=== PATIENT | male | born 1960 | race Caucasian/White ===

== ENCOUNTER 2019-08-20 12:28 | Emergency (ER) | payer MEDICAID ==
[~2019-08-20] VITALS: Ht 180.3 cm; Wt 66.8 kg
[~2019-08-20 12:28] MED LIST: LISI-170 PO; METO25TA35 PO
--- NOTE | 2019-08-20 13:05 | NUR ---
Assumed care of patient. C/O left ear pain since yesterday. Denies ear drainage, tinnitis, vertigo, and URI symptoms. NAD. Will continue to monitor.
--- NOTE | 2019-08-20 13:05 | NUR ---
Hx of HTN. Ran out of lisinopril.
[2019-08-20 13:31] VITALS: BP 169/126
[2019-08-20] MEDS ORDERED: ACETAMINOPHEN 500 MG TABLET PO ONE (14:00)
[2019-08-20] MEDS ORDERED: ACETAMINOPHEN 500 MG TABLET ONE (14:07)
--- NOTE | 2019-08-20 14:17 | NUR ---
Patient/Caregiver given discharge instructions and they have confirmed that they understand the instructions. Patient ambulatory with steady gait.
== END 2019-08-20 14:20 | disposition home or self-care (01) ==
LOC: ED 13:31
DX: H92.02 Otalgia, left ear (principal); I10 Essential (primary) hypertension; J44.9 Chronic obstructive pulmonary disease, unspecified; F17.200 Nicotine dependence, unspecified, uncomplicated
CPT/HCPCS: 99283

== ENCOUNTER 2020-06-26 11:18 | Inpatient (IN) | payer MEDICAID ==
[~2020-06-26] VITALS: Ht 180.3 cm; Wt 71.8 kg
[2020-06-26] VITALS (7 sets, daily range): BP systolic 87–143; BP diastolic 54–90
--- NOTE | 2020-06-26 11:32 | NUR ---
PT TO ROOM 22. CHART GIVEN DIRECTLY TO DR. ENAMORADO.
[2020-06-26] MEDS ORDERED: DEXAMETHASONE 4 MG/ML, 1ML ONE (11:39)
[2020-06-26] MEDS ORDERED: EPINEPHRINE 1 MG/ML, 1ML ONE ×2 (11:39→12:58)
[2020-06-26] MEDS ORDERED: DIPHENHYDRAMINE 50 MG/ML, 1ML ONE (11:39)
[2020-06-26] MEDS ORDERED: FAMOTIDINE 20 MG/2 ML ONE (11:40)
--- NOTE | 2020-06-26 11:46 | NUR ---
Ecg obtained, placed on database support medicated benadryl, decadron, antacid then IM epi after ecg read by MD as patient with hx of [place] in 2005
[2020-06-26] MEDS ORDERED: FAMOTIDINE 20 MG/2 ML IVPush ONE (12:00)
[2020-06-26] MEDS ORDERED: EPINEPHRINE 1 MG/ML, 1ML IM ONE ×2 (12:00→13:00)
[2020-06-26] MEDS ORDERED: DEXAMETHASONE 4 MG/ML, 1ML IVPush ONE (12:00)
[2020-06-26] MEDS ORDERED: SODIUM CHLORIDE FLUSH 10ML SYR IVF ONE (12:00)
[2020-06-26] MEDS ORDERED: DIPHENHYDRAMINE 50 MG/ML, 1ML IVPush ONE (12:00)
[2020-06-26 12:01] LABS: BASOPHILS % (AUTO) 1 % (0-1); EOSINOPHILS % (AUTO) 4 % (1-7); LYMPHOCYTES % (AUTO) 26 % (22-44); MD NO; MEAN CORPUSCULAR HEMOGLOBIN 31.4 pg (27.5-34.5); MEAN CORPUSCULAR HGB CONC 33.4 g/dL (33.2-36.2); MEAN PLATELET VOLUME 7.8 fL (7.4-10.4); MONOCYTES % (AUTO) 11 % (2-9); NEUTROPHILS % (AUTO) 59 % (42-75); PLATELET COUNT 324 x10^3/uL (130-400); RED BLOOD COUNT 5.57 x10^6/uL (4.38-5.82); RED CELL DISTRIBUTION WIDTH 13.6 % (9.4-14.8)
[2020-06-26 12:06] LABS: ANION GAP 9 mmol/L (5-15); CHLORIDE 107 mmol/L (98-107)
[2020-06-26] MEDS ORDERED: OMEP20TA9 PO (12:08)
[2020-06-26] MEDS ORDERED: CARV3.122 PO (12:08)
[2020-06-26] MEDS ORDERED: FLUT1BLS9 INH (12:08)
[2020-06-26] MEDS ORDERED: ALBU90AE2 INH (12:08)
[2020-06-26] MEDS ORDERED: LISI20TA21 PO (12:08)
--- NOTE | 2020-06-26 12:14 | NUR ---
WITH REASSESSMENT- "I FEEL A LITTLE BETTER." VSS ON READING TUTOR FACIAL SWELLING SLIGHTLY IMPROVED
--- NOTE | 2020-06-26 12:52 | NUR ---
WORSENING SOB/THROAT TIGHTNESS- ERP MADE AWARE
[2020-06-26] MEDS ORDERED: TRANEXAMIC ACID 100 MG/ML, 10ML IVPush ONE (13:00)
--- NOTE | 2020-06-26 13:25 | NUR ---
Patient with significantly worse sob. ERP to bedside. Voice much more hoarse. Patient very scared. Plant to intubate Transferred to Trauma Room 3 and Report to trauma RN: Hema HUITRON
[2020-06-26] MEDS ORDERED: ETOMIDATE 20 MG/10 ML IVPush ONE ×2 (13:30→14:00)
[2020-06-26] MEDS ORDERED: SUCCINYLCHOLINE 20 MG/ML, 10ML IVPush ONE ×2 (13:30→14:00)
[2020-06-26] MEDS ORDERED: PROPOFOL 100 ML IV PRN (13:30)
[2020-06-26] MEDS ORDERED: VECURONIUM 10 MG IVPush ONE (14:00)
[2020-06-26] MEDS ORDERED: ONDANSETRON 2MG/ML, 2ML IV PRN (15:00)
[2020-06-26] MEDS ORDERED: PHARMACY MAY ADJ FOR RENAL FX MC SCH (15:00)
[2020-06-26] MEDS ORDERED: ONDANSETRON 2MG/ML, 2ML IVPush PRN (15:00)
[2020-06-26] MEDS ORDERED: DEXTROSE 4 GM TAB.CHEW PO PRN (15:00)
[2020-06-26] MEDS ORDERED: LIDOCAINE-MPF 1%, 2ML ENDO PRN (15:00)
[2020-06-26] MEDS ORDERED: GLUCAGON 1 MG IM PRN (15:00)
[2020-06-26] MEDS ORDERED: DEXTROSE 50%, 50ML SYRINGE IVPush PRN (15:00)
[2020-06-26] MEDS: LABETALOL 5MG/ML, 20ML IVPush PRN (15:10)
[2020-06-26] MEDS: DIPHENHYDRAMINE 50 MG/ML, 1ML IVPush SCH ×2 (15:10→19:39)
[2020-06-26] MEDS: methylPREDNISolone SOD SUCC 125 MG/2 ML IVPush SCH ×2 (15:19→19:39)
[2020-06-26] MEDS ORDERED: ATROPINE SYRINGE 0.1 MG/ML, 10ML IVPush ONE (15:30)
[2020-06-26 15:42] LABS: AMPHETAMINE SCREEN, URINE Positive (Negative); BARBITURATE SCREEN, URINE Negative (Negative); BENZODIAZEPINE SCREEN, URINE Negative (Negative); CANNABINOID SCREEN, URINE Positive (Negative); COCAINE SCREEN, URINE Negative (Negative); METHADONE SCREEN, URINE Negative (Negative); OPIATE SCREEN, URINE Negative (Negative)
[2020-06-26] MEDS ORDERED: TRANEXAMIC ACID 1,000 MG in SODIUM CHLORIDE 0.9% 100 ML IV ONE (17:00)
[2020-06-26] MEDS: SODIUM CHLORIDE 0.9% 1,000 ML IV SCH (17:38)
[2020-06-26] MEDS ORDERED: ETOMIDATE 20 MG/10 ML ONE (19:19)
[2020-06-26] MEDS ORDERED: MIDAZOLAM 1 MG/ML, 5ML ONE (19:19)
[2020-06-26] MEDS ORDERED: PROPOFOL 10 MG/ML, 100ML IV ONE (19:19)
[2020-06-26] MEDS ORDERED: VECURONIUM 20 MG VIAL ONE (19:19)
[2020-06-26] MEDS ORDERED: SUCCINYLCHOLINE 20 MG/ML, 10ML ONE (19:19)
[2020-06-26] MEDS: SODIUM CHLORIDE FLUSH 10ML SYR IVF SCH (19:39)
[2020-06-26] MEDS: PROPOFOL 100 ML IV PRN ×2 (19:43→23:06)
[2020-06-26] MEDS: MIDAZOLAM HCL 50 MG in SODIUM CHLORIDE 0.9% 40 ML IV PRN ×2 (21:17→23:06)
[2020-06-27] MEDS: SODIUM CHLORIDE 0.9% 1,000 ML IV SCH (01:00)
[2020-06-27] MEDS: DIPHENHYDRAMINE 50 MG/ML, 1ML IVPush SCH ×4 (03:23→21:16)
[2020-06-27] MEDS: methylPREDNISolone SOD SUCC 125 MG/2 ML IVPush SCH ×4 (03:23→21:16)
[2020-06-27] MEDS: MIDAZOLAM HCL 50 MG in SODIUM CHLORIDE 0.9% 40 ML IV PRN ×3 (03:45→18:41)
[2020-06-27 04:30] LABS: ANION GAP 12 mmol/L (5-15); CALCIUM 7.8 mg/dL (8.5-10.1); CHLORIDE 112 mmol/L (98-107); CREATININE 2.42 mg/dL (0.7-1.3)
[2020-06-27 05:31] LABS: BASOPHILS % (AUTO) 0 % (0-1); EOSINOPHILS % (AUTO) 0 % (1-7); LYMPHOCYTES % (AUTO) 11 % (22-44); MEAN CORPUSCULAR HEMOGLOBIN 31.1 pg (27.5-34.5); MONOCYTES % (AUTO) 3 % (2-9); NEUTROPHILS % (AUTO) 86 % (42-75); PLATELET COUNT 224 x10^3/uL (130-400); RED BLOOD COUNT 4.24 x10^6/uL (4.38-5.82); RED CELL DISTRIBUTION WIDTH 13.7 % (9.4-14.8)
[2020-06-27 05:40] LABS: MD NO
[2020-06-27 07:11] LABS: ALBUMIN 3.2 g/dL (3.4-5.0); BILIRUBIN, DIRECT 0.3 mg/dL (0.1-0.2)
[2020-06-27 07:13] LABS: BILIRUBIN,INDIRECT 0.4 mg/dL (0.0-2.0); BILIRUBIN,TOTAL 0.7 mg/dL (0.2-1.0); TOTAL PROTEIN 7.1 g/dL (6.4-8.2)
[2020-06-27] MEDS ORDERED: POTASSIUM CHLORIDE 20 MEQ PACKET PO ONE (08:30)
[2020-06-27] MEDS: FAMOTIDINE 20 MG/2 ML IVPush SCH (09:26)
[2020-06-27] MEDS: SODIUM CHLORIDE FLUSH 10ML SYR IVF SCH ×2 (09:26→21:16)
[2020-06-27] MEDS ORDERED: LACTATED RINGERS 1,000 ML IVBOLUS ONE ×2 (09:30→14:00)
[2020-06-27 13:41] LABS: POTASSIUM,URINE RANDOM 62 mmol/L
[2020-06-27 13:42] LABS: CHLORIDE,URINE RANDOM < 10 mmol/L; SODIUM,URINE RANDOM < 5 mmol/L
[2020-06-27] MEDS: PROPOFOL 100 ML IV PRN (18:41)
[2020-06-28] MEDS: PROPOFOL 100 ML IV PRN ×4 (01:24→20:39)
[2020-06-28] MEDS: methylPREDNISolone SOD SUCC 125 MG/2 ML IVPush SCH ×4 (03:02→20:06)
[2020-06-28] MEDS: DIPHENHYDRAMINE 50 MG/ML, 1ML IVPush SCH ×4 (03:02→20:06)
[2020-06-28 04:46] LABS: BASOPHILS % (AUTO) 0 % (0-1); EOSINOPHILS % (AUTO) 0 % (1-7); LYMPHOCYTES % (AUTO) 4 % (22-44); MEAN CORPUSCULAR HEMOGLOBIN 31.5 pg (27.5-34.5); MEAN CORPUSCULAR HGB CONC 33.5 g/dL (33.2-36.2); MEAN PLATELET VOLUME 8.2 fL (7.4-10.4); MONOCYTES % (AUTO) 4 % (2-9); NEUTROPHILS % (AUTO) 92 % (42-75); PLATELET COUNT 198 x10^3/uL (130-400); RED BLOOD COUNT 3.96 x10^6/uL (4.38-5.82); RED CELL DISTRIBUTION WIDTH 13.7 % (9.4-14.8)
[2020-06-28 04:55] LABS: ANION GAP 8 mmol/L (5-15); CALCIUM 7.7 mg/dL (8.5-10.1); CHLORIDE 111 mmol/L (98-107); CREATININE 2.31 mg/dL (0.7-1.3)
[2020-06-28 05:53] LABS: MD SCAN
[2020-06-28] MEDS: SODIUM CHLORIDE 0.9% 1,000 ML IV SCH ×2 (08:20→20:06)
[2020-06-28] MEDS: FAMOTIDINE 20 MG/2 ML IVPush SCH (09:34)
[2020-06-28] MEDS: HEPARIN 5,000 UNITS/ML, 1ML SQ SCH ×2 (09:35→17:41)
--- NOTE | 2020-06-28 09:35 | NUR ---
TF recs if needed: Promote w/ end goal rate of 70mL/hr (on Propofol); 75mL/hr (OFF propofol). Addendum: 06/28/20 at [address] Amended: Links added.
[2020-06-28] MEDS: SODIUM CHLORIDE FLUSH 10ML SYR IVF SCH ×2 (09:53→20:05)
[2020-06-28] MEDS: MIDAZOLAM HCL 50 MG in SODIUM CHLORIDE 0.9% 40 ML IV PRN (09:53)
[2020-06-29] MEDS: HEPARIN 5,000 UNITS/ML, 1ML SQ SCH ×3 (00:45→15:40)
[2020-06-29] MEDS: MIDAZOLAM HCL 50 MG in SODIUM CHLORIDE 0.9% 40 ML IV PRN ×2 (01:34→23:24)
[2020-06-29] MEDS: methylPREDNISolone SOD SUCC 125 MG/2 ML IVPush SCH ×4 (02:48→21:27)
[2020-06-29] MEDS: DIPHENHYDRAMINE 50 MG/ML, 1ML IVPush SCH ×4 (02:48→21:27)
[2020-06-29 04:36] LABS: BASOPHILS % (AUTO) 0 % (0-1); EOSINOPHILS % (AUTO) 0 % (1-7); LYMPHOCYTES % (AUTO) 3 % (22-44); MEAN CORPUSCULAR HEMOGLOBIN 31.3 pg (27.5-34.5); MEAN PLATELET VOLUME 8.6 fL (7.4-10.4); MONOCYTES % (AUTO) 5 % (2-9); NEUTROPHILS % (AUTO) 91 % (42-75); PLATELET COUNT 184 x10^3/uL (130-400); RED BLOOD COUNT 4.18 x10^6/uL (4.38-5.82); RED CELL DISTRIBUTION WIDTH 13.7 % (9.4-14.8)
[2020-06-29 04:45] LABS: MD SCAN
[2020-06-29 04:46] LABS: ANION GAP 7 mmol/L (5-15); CALCIUM 7.8 mg/dL (8.5-10.1); CHLORIDE 116 mmol/L (98-107); CREATININE 1.73 mg/dL (0.7-1.3); TRIGLYCERIDES 172 mg/dL (50-200)
[2020-06-29] MEDS: SODIUM CHLORIDE FLUSH 10ML SYR IVF SCH ×2 (09:01→21:28)
[2020-06-29] MEDS: FAMOTIDINE 20 MG/2 ML IVPush SCH (09:01)
[2020-06-29] MEDS: hydrALAzine 20 MG/ML, 1ML IVPush PRN ×3 (09:01→21:27)
[2020-06-29] MEDS: SODIUM CHLORIDE 0.9% 1,000 ML IV SCH ×2 (09:02→23:37)
[2020-06-29] MEDS: PROPOFOL 100 ML IV PRN (10:04)
[2020-06-29] MEDS: DEXMEDETOMIDINE 400 MCG in SODIUM CHLORIDE 0.9% 96 ML IV PRN ×3 (11:43→18:37)
[2020-06-29] MEDS: LABETALOL 5MG/ML, 20ML IVPush PRN ×2 (14:53→18:29)
[2020-06-29] MEDS ORDERED: DEXMEDETOMIDINE 1,000 MCG in SODIUM CHLORIDE 0.9% 240 ML IV PRN (23:00)
[2020-06-30] MEDS: HEPARIN 5,000 UNITS/ML, 1ML SQ SCH ×3 (00:48→16:38)
[2020-06-30] MEDS: DIPHENHYDRAMINE 50 MG/ML, 1ML IVPush SCH ×2 (02:58→08:53)
[2020-06-30] MEDS: methylPREDNISolone SOD SUCC 125 MG/2 ML IVPush SCH ×3 (02:59→16:38)
[2020-06-30] MEDS: hydrALAzine 20 MG/ML, 1ML IVPush PRN ×3 (03:01→20:39)
[2020-06-30 04:54] LABS: BASOPHILS % (AUTO) 0 % (0-1); EOSINOPHILS % (AUTO) 0 % (1-7); LYMPHOCYTES % (AUTO) 2 % (22-44); MEAN CORPUSCULAR HEMOGLOBIN 31.3 pg (27.5-34.5); MEAN PLATELET VOLUME 8.5 fL (7.4-10.4); MONOCYTES % (AUTO) 6 % (2-9); NEUTROPHILS % (AUTO) 92 % (42-75); PLATELET COUNT 143 x10^3/uL (130-400); RED BLOOD COUNT 4.33 x10^6/uL (4.38-5.82); RED CELL DISTRIBUTION WIDTH 13.7 % (9.4-14.8)
[2020-06-30 05:05] LABS: MD NO
[2020-06-30 05:10] LABS: ANION GAP 6 mmol/L (5-15); CALCIUM 7.9 mg/dL (8.5-10.1); CHLORIDE 120 mmol/L (98-107); CREATININE 1.46 mg/dL (0.7-1.3)
[2020-06-30] MEDS: MIDAZOLAM HCL 50 MG in SODIUM CHLORIDE 0.9% 40 ML IV PRN (05:55)
[2020-06-30] MEDS ORDERED: DEXMEDETOMIDINE 200 MCG in SODIUM CHLORIDE 0.9% 48 ML IV PRN (08:00)
[2020-06-30] MEDS ORDERED: DEXMEDETOMIDINE 400 MCG in SODIUM CHLORIDE 0.9% 96 ML IV PRN (08:00)
[2020-06-30] MEDS: SODIUM CHLORIDE FLUSH 10ML SYR IVF SCH ×2 (08:53→21:00)
[2020-06-30] MEDS: FAMOTIDINE 20 MG/2 ML IVPush SCH (08:53)
[2020-06-30] MEDS: ZIPRASIDONE 20 MG INJ IM PRN (09:24)
[2020-06-30] MEDS: QUETIAPINE 25MG TABLET NG SCH ×2 (09:25→21:39)
[2020-06-30] MEDS: DEXMEDETOMIDINE 400 MCG in SODIUM CHLORIDE 0.9% 96 ML IV PRN ×2 (11:54→20:48)
[2020-06-30] MEDS: SODIUM CHLORIDE 0.9% 1,000 ML IV SCH (12:32)
[2020-06-30] MEDS: DIPHENHYDRAMINE 50 MG/ML, 1ML IVPush PRN (16:49)
[2020-06-30] MEDS: LORazepam 2 MG/ML, 1ML IVPush PRN (17:42)
[2020-06-30] MEDS: MORPHINE SULFATE 4 MG/ML, 1ML IVPush PRN (19:30)
[2020-06-30] MEDS: LABETALOL 5MG/ML, 20ML IVPush PRN (21:39)
[2020-07-01] MEDS: LORazepam 2 MG/ML, 1ML IVPush PRN (00:28)
[2020-07-01] MEDS: HEPARIN 5,000 UNITS/ML, 1ML SQ SCH ×4 (00:29→23:48)
[2020-07-01] MEDS: methylPREDNISolone SOD SUCC 125 MG/2 ML IVPush SCH ×4 (00:29→23:48)
[2020-07-01] MEDS: SODIUM CHLORIDE 0.9% 1,000 ML IV SCH (03:10)
[2020-07-01] MEDS: DIPHENHYDRAMINE 50 MG/ML, 1ML IVPush PRN (03:30)
[2020-07-01] MEDS: DEXMEDETOMIDINE 400 MCG in SODIUM CHLORIDE 0.9% 96 ML IV PRN ×2 (03:38→09:46)
[2020-07-01] MEDS ORDERED: LACTULOSE 20 GM/30 ML UDC ONE (03:49)
[2020-07-01] MEDS: LACTULOSE 20 GM/30 ML UDC PO PRN (03:51)
[2020-07-01 04:48] LABS: O2 FLOW ROOM AIR L/min
[2020-07-01 04:56] LABS: BASOPHILS % (AUTO) 0 % (0-1); EOSINOPHILS % (AUTO) 0 % (1-7); LYMPHOCYTES % (AUTO) 2 % (22-44); MEAN CORPUSCULAR HEMOGLOBIN 30.8 pg (27.5-34.5); MEAN CORPUSCULAR HGB CONC 32.4 g/dL (33.2-36.2); MEAN PLATELET VOLUME 8.9 fL (7.4-10.4); MONOCYTES % (AUTO) 2 % (2-9); NEUTROPHILS % (AUTO) 97 % (42-75); PLATELET COUNT 110 x10^3/uL (130-400); RED BLOOD COUNT 4.27 x10^6/uL (4.38-5.82); RED CELL DISTRIBUTION WIDTH 14.2 % (9.4-14.8)
[2020-07-01 04:59] LABS: ANION GAP 4 mmol/L (5-15); CHLORIDE 125 mmol/L (98-107); CREATININE 1.31 mg/dL (0.7-1.3); MD NO
[2020-07-01] MEDS: LABETALOL 5MG/ML, 20ML IVPush PRN ×3 (05:35→16:31)
[2020-07-01] MEDS: hydrALAzine 20 MG/ML, 1ML IVPush PRN ×2 (06:10→18:06)
[2020-07-01] MEDS: FENTANYL PF 100 MCG/2ML IVPush PRN ×3 (06:48→16:55)
[2020-07-01] MEDS ORDERED: ROCURONIUM 10 MG/ML,10ML IVPush STA (07:21)
[2020-07-01] MEDS: MORPHINE SULFATE 4 MG/ML, 1ML IVPush PRN (07:22)
[2020-07-01] MEDS ORDERED: PROPOFOL 10 MG/ML, 20ML IVPush ONE (07:30)
[2020-07-01] MEDS ORDERED: PHARMACY MAY ADJ FOR RENAL FX MC SCH (07:30)
[2020-07-01] MEDS ORDERED: ROCURONIUM 10 MG/ML,10ML IVPush ONE (07:30)
[2020-07-01] MEDS ORDERED: PROPOFOL 10 MG/ML, 20ML IV ONE (07:30)
[2020-07-01] MEDS: MIDAZOLAM HCL 50 MG in SODIUM CHLORIDE 0.9% 40 ML IV PRN ×3 (08:01→22:24)
[2020-07-01] MEDS ORDERED: DOCUSATE 100 MG CAPSULE PO SCH (09:00)
[2020-07-01] MEDS: DOCUSATE 50 MG/5 ML, 10ML UDC NG SCH (09:27)
[2020-07-01] MEDS: FAMOTIDINE 20 MG/2 ML IVPush SCH (09:27)
[2020-07-01] MEDS: QUETIAPINE 25MG TABLET NG SCH ×2 (09:27→20:06)
[2020-07-01] MEDS: SODIUM CHLORIDE FLUSH 10ML SYR IVF SCH ×2 (09:27→20:00)
[2020-07-01] MEDS ORDERED: ROCURONIUM 10MG/ML,5ML ONE (11:39)
[2020-07-01] MEDS ORDERED: PROPOFOL 10 MG/ML, 20ML ONE (11:39)
[2020-07-01] MEDS ORDERED: PROPOFOL 10 MG/ML, 100ML IV ONE (11:39)
[2020-07-01 12:15] LABS: ANION GAP 6 mmol/L (5-15); CALCIUM 7.7 mg/dL (8.5-10.1); CHLORIDE 126 mmol/L (98-107)
[2020-07-01] MEDS: ACETAMINOPHEN 325 MG TABLET PO PRN ×2 (13:41→17:46)
[2020-07-01] MEDS: DEXMEDETOMIDINE 1,000 MCG in SODIUM CHLORIDE 0.9% 240 ML IV PRN ×2 (13:53→22:24)
[2020-07-01] MEDS ORDERED: PHARMACOKINETIC MONITORING MC PRN (16:30)
[2020-07-01] MEDS ORDERED: PHARMACOKINETIC CONSULTATION MC ONE (16:30)
[2020-07-01] MEDS ORDERED: VANCOMYCIN PER PHARMACY MC PRN (16:30)
[2020-07-01] MEDS ORDERED: VANCOMYCIN PMX 1GM/200ML 200 ML IV ONE (16:30)
[2020-07-01] MEDS ORDERED: VANCOMYCIN 1,900 MG in SODIUM CHLORIDE 0.9% 250 ML IV ONE (16:45)
[2020-07-01] MEDS: PIPERACILLIN/TAZO/PMX 3.375GM 50 ML IV SCH ×2 (17:46→22:24)
[2020-07-01 18:24] LABS: ANION GAP 6 mmol/L (5-15); CALCIUM 7.8 mg/dL (8.5-10.1); CHLORIDE 123 mmol/L (98-107); CREATININE 1.61 mg/dL (0.7-1.3)
[2020-07-01 19:16] LABS: MICROSCOPIC INDICATED
[2020-07-01] MEDS: BISACODYL 10 MG SUPP PR PRN (20:06)
[2020-07-01] MEDS: SENNA/DOCUSATE TABLET PO SCH (20:06)
[2020-07-01] MEDS: SENNA 176 MG/5 ML ORAL SOL NG SCH (20:07)
[2020-07-02 00:45] LABS: ANION GAP 6 mmol/L (5-15); CALCIUM 7.5 mg/dL (8.5-10.1); CHLORIDE 119 mmol/L (98-107); CREATININE 1.65 mg/dL (0.7-1.3)
[2020-07-02] MEDS: FENTANYL PF 100 MCG/2ML IVPush PRN (02:17)
[2020-07-02] MEDS: PIPERACILLIN/TAZO/PMX 3.375GM 50 ML IV SCH ×4 (03:57→22:51)
[2020-07-02 04:18] LABS: MEAN CORPUSCULAR HGB CONC 32.3 g/dL (33.2-36.2); MEAN PLATELET VOLUME 9.9 fL (7.4-10.4); PLATELET COUNT 58 x10^3/uL (130-400); RED BLOOD COUNT 4.15 x10^6/uL (4.38-5.82); RED CELL DISTRIBUTION WIDTH 14.2 % (9.4-14.8)
[2020-07-02 04:30] LABS: ANION GAP 5 mmol/L (5-15); CALCIUM 7.6 mg/dL (8.5-10.1); CHLORIDE 117 mmol/L (98-107); CREATININE 1.51 mg/dL (0.7-1.3); TRIGLYCERIDES 73 mg/dL (50-200)
[2020-07-02 04:55] LABS: MD YES
[2020-07-02 04:58] LABS: BAND#(MANUAL) 8.73 x10^3/uL; BANDS%(MANUAL) 29 % (0-7); LYMPHS% (MANUAL) 2 % (22-44); MONOS% (MANUAL) 3 % (2-9); SEG#(MANUAL) 19.87 x10^3/uL (1.8-6.8); SEGS% (MANUAL) 66 % (42-75)
[2020-07-02 04:59] LABS: <PLATELET ESTIMATE> DECREASED; <PLT MORPHOLOGY> NORMAL PLT MORPH; ANISOCYTOSIS 1+
[2020-07-02] MEDS: FUROSEMIDE 40 MG/4 ML IV SCH ×2 (10:15→21:45)
[2020-07-02] MEDS: DIAZEPAM 5 MG/ML, 2ML IVPush SCH ×3 (10:16→21:47)
[2020-07-02] MEDS: DOCUSATE 50 MG/5 ML, 10ML UDC NG SCH (10:16)
[2020-07-02] MEDS: FAMOTIDINE 20 MG/2 ML IVPush SCH (10:16)
[2020-07-02] MEDS: methylPREDNISolone SOD SUCC 125 MG/2 ML IVPush SCH ×2 (10:16→16:37)
[2020-07-02] MEDS: LACTULOSE 20 GM/30 ML UDC PO PRN (10:17)
[2020-07-02] MEDS: QUETIAPINE 25MG TABLET NG SCH ×2 (10:17→21:48)
[2020-07-02] MEDS: SODIUM CHLORIDE FLUSH 10ML SYR IVF SCH ×2 (10:17→21:45)
[2020-07-02] MEDS: INSULIN LISPRO 100 UNITS/ML, PEN MEDIUM DOSE SS SQ-INSULIN SCH ×3 (10:30→21:50)
[2020-07-02] MEDS: DEXMEDETOMIDINE 1,000 MCG in SODIUM CHLORIDE 0.9% 240 ML IV PRN ×2 (12:20→22:51)
[2020-07-02] MEDS: ALBUTEROL SULFATE 2.5 MG/3 ML NPPB SCH ×2 (15:00→20:12)
[2020-07-02] MEDS: VANCOMYCIN 1,500 MG in SODIUM CHLORIDE 0.9% 250 ML IV SCH (18:43)
[2020-07-02] MEDS: ZIPRASIDONE 20 MG INJ IM PRN (18:45)
[2020-07-02] MEDS: BUDESONIDE 0.5 MG/2 ML INHA INH SCH (20:12)
[2020-07-02] MEDS: SENNA/DOCUSATE TABLET PO SCH (21:48)
[2020-07-02] MEDS: SENNA 176 MG/5 ML ORAL SOL NG SCH (21:49)
[2020-07-03] MEDS: methylPREDNISolone SOD SUCC 125 MG/2 ML IVPush SCH ×3 (01:17→21:42)
[2020-07-03] MEDS: ALBUTEROL SULFATE 2.5 MG/3 ML NPPB SCH ×4 (02:49→19:33)
[2020-07-03] MEDS: DIAZEPAM 5 MG/ML, 2ML IVPush SCH ×4 (04:17→21:42)
[2020-07-03] MEDS: INSULIN LISPRO 100 UNITS/ML, PEN MEDIUM DOSE SS SQ-INSULIN SCH ×4 (04:17→21:39)
[2020-07-03 04:40] LABS: ANION GAP 5 mmol/L (5-15); CHLORIDE 114 mmol/L (98-107); CREATININE 1.88 mg/dL (0.7-1.3); MEAN CORPUSCULAR HEMOGLOBIN 30.8 pg (27.5-34.5); MEAN CORPUSCULAR HGB CONC 32.5 g/dL (33.2-36.2); MEAN PLATELET VOLUME 10.4 fL (7.4-10.4); RED BLOOD COUNT 4.41 x10^6/uL (4.38-5.82); RED CELL DISTRIBUTION WIDTH 14.3 % (9.4-14.8)
[2020-07-03] MEDS: PIPERACILLIN/TAZO/PMX 3.375GM 50 ML IV SCH ×3 (05:35→18:16)
[2020-07-03 06:03] LABS: MD YES; PLATELET COUNT 45 x10^3/uL (130-400)
[2020-07-03 06:08] LABS: BAND#(MANUAL) 0.22 x10^3/uL; BANDS%(MANUAL) 1 % (0-7); LYMPH#(MANUAL) 0.44 x10^3/uL (1-3.4); LYMPHS% (MANUAL) 2 % (22-44); METAMYELOCYTES# (MANUAL) 0.22 x10^3/uL (0-0); METAMYELOCYTES% (MANUAL) 1 % (0-1); MONOS#(MANUAL) 0.88 x10^3/uL (0.3-2.7); MONOS% (MANUAL) 4 % (2-9); SEG#(MANUAL) 20.33 x10^3/uL (1.8-6.8); SEGS% (MANUAL) 92 % (42-75)
[2020-07-03 06:12] LABS: ANISOCYTOSIS 1+
[2020-07-03 06:13] LABS: <PLATELET ESTIMATE> DECREASED; <PLT MORPHOLOGY> NORMAL PLT MORPH
[2020-07-03] MEDS: BUDESONIDE 0.5 MG/2 ML INHA INH SCH ×2 (07:21→19:33)
[2020-07-03] MEDS: FUROSEMIDE 40 MG/4 ML IV SCH ×2 (08:16→21:41)
[2020-07-03] MEDS: FAMOTIDINE 20 MG/2 ML IVPush SCH (08:16)
[2020-07-03] MEDS: QUETIAPINE 25MG TABLET NG SCH ×2 (08:16→21:44)
[2020-07-03] MEDS: DOCUSATE 50 MG/5 ML, 10ML UDC NG SCH (08:16)
[2020-07-03] MEDS: SODIUM CHLORIDE FLUSH 10ML SYR IVF SCH ×2 (08:16→21:41)
[2020-07-03] MEDS: INSULIN GLARGINE 100 UNITS/ML, PEN SQ-INSULIN SCH ×2 (08:51→21:40)
[2020-07-03] MEDS: MIDAZOLAM HCL 50 MG in SODIUM CHLORIDE 0.9% 40 ML IV PRN (10:04)
[2020-07-03] MEDS: DEXMEDETOMIDINE 1,000 MCG in SODIUM CHLORIDE 0.9% 240 ML IV PRN ×2 (10:05→20:21)
[2020-07-03] MEDS ORDERED: OMNIPAQUE 350 MG/ML, 100ML BOTTLE ONE (11:16)
[2020-07-03] MEDS: hydrALAzine 20 MG/ML, 1ML IVPush PRN (11:48)
[2020-07-03] MEDS ORDERED: FONDAPARINUX 2.5 MG/0.5 ML SQ SCH (13:00)
[2020-07-03] MEDS: VANCOMYCIN 1,500 MG in SODIUM CHLORIDE 0.9% 250 ML IV SCH (18:17)
[2020-07-03] MEDS: AMLODIPINE 5 MG TABLET PO SCH (21:44)
[2020-07-04] MEDS: BISACODYL 10 MG SUPP PR PRN (00:15)
[2020-07-04] MEDS: PIPERACILLIN/TAZO/PMX 3.375GM 50 ML IV SCH ×2 (00:15→05:50)
[2020-07-04] MEDS: ALBUTEROL SULFATE 2.5 MG/3 ML NPPB SCH ×2 (01:00→07:00)
[2020-07-04] MEDS: DIAZEPAM 5 MG/ML, 2ML IVPush SCH ×4 (03:38→21:22)
[2020-07-04] MEDS: INSULIN LISPRO 100 UNITS/ML, PEN MEDIUM DOSE SS SQ-INSULIN SCH ×4 (03:39→21:30)
[2020-07-04 04:59] LABS: ANION GAP 6 mmol/L (5-15); BASOPHILS % (AUTO) 0 % (0-1); CHLORIDE 113 mmol/L (98-107); EOSINOPHILS % (AUTO) 0 % (1-7); LYMPHOCYTES % (AUTO) 3 % (22-44); MEAN CORPUSCULAR HEMOGLOBIN 31.3 pg (27.5-34.5); MEAN CORPUSCULAR HGB CONC 33.6 g/dL (33.2-36.2); MEAN PLATELET VOLUME 10.9 fL (7.4-10.4); MONOCYTES % (AUTO) 6 % (2-9); NEUTROPHILS % (AUTO) 91 % (42-75); RED BLOOD COUNT 4.48 x10^6/uL (4.38-5.82); TRIGLYCERIDES 174 mg/dL (50-200)
[2020-07-04 05:12] LABS: MD NO; PLATELET COUNT 49 x10^3/uL (130-400)
[2020-07-04] MEDS: DEXMEDETOMIDINE 1,000 MCG in SODIUM CHLORIDE 0.9% 240 ML IV PRN (06:15)
[2020-07-04] MEDS: MIDAZOLAM HCL 50 MG in SODIUM CHLORIDE 0.9% 40 ML IV PRN ×4 (06:15→21:29)
[2020-07-04] MEDS: BUDESONIDE 0.5 MG/2 ML INHA INH SCH ×2 (07:00→19:02)
[2020-07-04] MEDS: FAMOTIDINE 20 MG/2 ML IVPush SCH (08:21)
[2020-07-04] MEDS: methylPREDNISolone SOD SUCC 125 MG/2 ML IVPush SCH (08:21)
[2020-07-04] MEDS: FUROSEMIDE 40 MG/4 ML IV SCH ×2 (08:21→21:22)
[2020-07-04] MEDS: AMLODIPINE 5 MG TABLET PO SCH ×2 (08:21→21:23)
[2020-07-04] MEDS: SODIUM CHLORIDE FLUSH 10ML SYR IVF SCH ×2 (08:21→21:22)
[2020-07-04] MEDS: DOCUSATE 50 MG/5 ML, 10ML UDC NG SCH (08:21)
[2020-07-04] MEDS: FONDAPARINUX 2.5 MG/0.5 ML SQ SCH (08:23)
[2020-07-04] MEDS: INSULIN LISPRO 100 UNITS/ML, PEN SQ-INSULIN SCH ×3 (08:27→21:30)
[2020-07-04] MEDS: QUETIAPINE 25MG TABLET NG SCH ×2 (08:36→21:23)
[2020-07-04] MEDS: INSULIN GLARGINE 100 UNITS/ML, PEN SQ-INSULIN SCH ×2 (08:37→21:30)
[2020-07-04] MEDS: FENTANYL PF 100 MCG/2ML IVPush PRN (09:34)
[2020-07-04] MEDS: ACETAMINOPHEN 325 MG TABLET PO PRN ×2 (10:25→16:29)
[2020-07-04] MEDS: LACTULOSE 20 GM/30 ML UDC PO SCH ×2 (11:42→21:23)
[2020-07-04] MEDS: CEFTRIAXONE 2 GM in DEXTROSE 5% 50 ML IVPB SCH (12:52)
[2020-07-04] MEDS: ALBUTEROL SULFATE 2.5 MG/3 ML INLINE SCH ×3 (14:25→23:20)
[2020-07-04] MEDS: METOPROLOL TARTRATE 25 MG TAB PO SCH (16:28)
[2020-07-05] MEDS: FENTANYL PF 100 MCG/2ML IVPush PRN ×2 (00:18→19:53)
[2020-07-05] MEDS: ACETAMINOPHEN 325 MG TABLET PO PRN ×3 (00:18→16:29)
[2020-07-05] MEDS: DEXMEDETOMIDINE 1,000 MCG in SODIUM CHLORIDE 0.9% 240 ML IV PRN ×2 (02:38→14:40)
[2020-07-05] MEDS: DIAZEPAM 5 MG/ML, 2ML IVPush SCH ×4 (03:14→21:08)
[2020-07-05] MEDS: INSULIN LISPRO 100 UNITS/ML, PEN MEDIUM DOSE SS SQ-INSULIN SCH ×4 (03:15→21:09)
[2020-07-05] MEDS: ALBUTEROL SULFATE 2.5 MG/3 ML INLINE SCH ×6 (03:45→22:34)
[2020-07-05 04:58] LABS: BASOPHILS % (AUTO) 0 % (0-1); EOSINOPHILS % (AUTO) 0 % (1-7); LYMPHOCYTES % (AUTO) 15 % (22-44); MEAN CORPUSCULAR HEMOGLOBIN 31.1 pg (27.5-34.5); MEAN CORPUSCULAR HGB CONC 33.1 g/dL (33.2-36.2); MEAN PLATELET VOLUME 10.6 fL (7.4-10.4); MONOCYTES % (AUTO) 12 % (2-9); NEUTROPHILS % (AUTO) 73 % (42-75); PLATELET COUNT 54 x10^3/uL (130-400); RED BLOOD COUNT 4.57 x10^6/uL (4.38-5.82); RED CELL DISTRIBUTION WIDTH 13.7 % (9.4-14.8)
[2020-07-05 05:05] LABS: ANION GAP 3 mmol/L (5-15); CALCIUM 8.7 mg/dL (8.5-10.1); CHLORIDE 112 mmol/L (98-107)
[2020-07-05 05:07] LABS: CREATININE 1.66 mg/dL (0.7-1.3); TRIGLYCERIDES 209 mg/dL (50-200)
[2020-07-05 05:48] LABS: MD SCAN
[2020-07-05] MEDS: METOPROLOL TARTRATE 25 MG TAB PO SCH ×2 (06:14→18:29)
[2020-07-05] MEDS: INSULIN LISPRO 100 UNITS/ML, PEN SQ-INSULIN SCH ×2 (06:18→09:00)
[2020-07-05] MEDS: BUDESONIDE 0.5 MG/2 ML INHA INH SCH ×2 (06:42→19:20)
[2020-07-05] MEDS: INSULIN GLARGINE 100 UNITS/ML, PEN SQ-INSULIN SCH (09:00)
[2020-07-05] MEDS ORDERED: methylPREDNISolone SOD SUCC 125 MG/2 ML IVPush SCH (09:00)
[2020-07-05] MEDS: FAMOTIDINE 20 MG/2 ML IVPush SCH (09:16)
[2020-07-05] MEDS: FONDAPARINUX 2.5 MG/0.5 ML SQ SCH (09:18)
[2020-07-05] MEDS: MIDAZOLAM HCL 50 MG in SODIUM CHLORIDE 0.9% 40 ML IV PRN ×2 (09:20→22:55)
[2020-07-05] MEDS: LACTULOSE 20 GM/30 ML UDC PO SCH ×2 (09:21→21:09)
[2020-07-05] MEDS: DOCUSATE 50 MG/5 ML, 10ML UDC NG SCH (09:21)
[2020-07-05] MEDS: AMLODIPINE 5 MG TABLET PO SCH ×2 (09:22→21:10)
[2020-07-05] MEDS: QUETIAPINE 25MG TABLET NG SCH ×2 (09:23→21:09)
[2020-07-05] MEDS: FUROSEMIDE 40 MG/4 ML IV SCH (09:24)
[2020-07-05] MEDS: SODIUM CHLORIDE FLUSH 10ML SYR IVF SCH ×2 (09:35→21:08)
[2020-07-05] MEDS: CEFTRIAXONE 2 GM in DEXTROSE 5% 50 ML IVPB SCH (12:28)
[2020-07-05] MEDS: PROPOFOL 100 ML IV PRN (14:43)
[2020-07-05] MEDS ORDERED: INSULIN GLARGINE 100 UNITS/ML, PEN SQ-INSULIN SCH (21:00)
[2020-07-06] MEDS: PROPOFOL 100 ML IV PRN (00:48)
[2020-07-06] MEDS: DEXMEDETOMIDINE 1,000 MCG in SODIUM CHLORIDE 0.9% 240 ML IV PRN (00:48)
[2020-07-06] MEDS: ALBUTEROL SULFATE 2.5 MG/3 ML INLINE SCH ×3 (02:24→10:20)
[2020-07-06] MEDS: DIAZEPAM 5 MG/ML, 2ML IVPush SCH (03:13)
[2020-07-06] MEDS: INSULIN LISPRO 100 UNITS/ML, PEN MEDIUM DOSE SS SQ-INSULIN SCH ×4 (03:14→21:00)
[2020-07-06 04:49] LABS: ANION GAP 2 mmol/L (5-15); BASOPHILS % (AUTO) 0 % (0-1); CALCIUM 8.6 mg/dL (8.5-10.1); CHLORIDE 110 mmol/L (98-107); CREATININE 1.51 mg/dL (0.7-1.3); EOSINOPHILS % (AUTO) 1 % (1-7); LYMPHOCYTES % (AUTO) 13 % (22-44); MEAN CORPUSCULAR HEMOGLOBIN 31.1 pg (27.5-34.5); MONOCYTES % (AUTO) 8 % (2-9); NEUTROPHILS % (AUTO) 78 % (42-75); PLATELET COUNT 63 x10^3/uL (130-400); RED BLOOD COUNT 4.47 x10^6/uL (4.38-5.82); RED CELL DISTRIBUTION WIDTH 13.3 % (9.4-14.8)
[2020-07-06 05:10] LABS: MD SCAN
[2020-07-06] MEDS: METOPROLOL TARTRATE 25 MG TAB PO SCH ×2 (05:33→18:00)
[2020-07-06] MEDS: BUDESONIDE 0.5 MG/2 ML INHA INH SCH (07:14)
[2020-07-06] MEDS ORDERED: CEFEPIME 1 GM in DEXTROSE 5% 50 ML IV SCH (08:00)
[2020-07-06] MEDS: CEFEPIME 1 GM in DEXTROSE 5% 100 ML IV SCH ×2 (08:22→16:30)
[2020-07-06] MEDS: FUROSEMIDE 40 MG/4 ML IV SCH (08:51)
[2020-07-06] MEDS: SODIUM CHLORIDE FLUSH 10ML SYR IVF SCH ×2 (08:52→20:28)
[2020-07-06] MEDS: FAMOTIDINE 20 MG/2 ML IVPush SCH (08:52)
[2020-07-06] MEDS: AMLODIPINE 5 MG TABLET PO SCH ×2 (08:52→20:27)
[2020-07-06] MEDS: DOCUSATE 50 MG/5 ML, 10ML UDC NG SCH (08:52)
[2020-07-06] MEDS: LACTULOSE 20 GM/30 ML UDC PO SCH ×2 (08:53→20:28)
[2020-07-06] MEDS: QUETIAPINE 25MG TABLET NG SCH (08:53)
[2020-07-06] MEDS: ENOXAPARIN 40 MG/0.4 ML SQ SCH (08:53)
[2020-07-06] MEDS ORDERED: AMPICILLIN/SULBACTAM 3 GM in SODIUM CHLORIDE 0.9% 100 ML IV SCH (12:00)
[2020-07-06] MEDS: LORazepam 2 MG/ML, 1ML IVPush PRN ×5 (14:38→23:09)
[2020-07-07] MEDS: CEFEPIME 1 GM in DEXTROSE 5% 100 ML IV SCH ×3 (00:13→17:13)
[2020-07-07] MEDS: INSULIN LISPRO 100 UNITS/ML, PEN MEDIUM DOSE SS SQ-INSULIN SCH ×4 (03:00→21:00)
[2020-07-07] MEDS: LORazepam 2 MG/ML, 1ML IVPush PRN ×3 (03:50→13:22)
[2020-07-07 04:38] LABS: BASOPHILS % (AUTO) 0 % (0-1); EOSINOPHILS % (AUTO) 1 % (1-7); LYMPHOCYTES % (AUTO) 12 % (22-44); MD NO; MEAN CORPUSCULAR HEMOGLOBIN 30.9 pg (27.5-34.5); MEAN CORPUSCULAR HGB CONC 32.9 g/dL (33.2-36.2); MEAN PLATELET VOLUME 10.4 fL (7.4-10.4); MONOCYTES % (AUTO) 6 % (2-9); NEUTROPHILS % (AUTO) 81 % (42-75); PLATELET COUNT 92 x10^3/uL (130-400); RED BLOOD COUNT 4.41 x10^6/uL (4.38-5.82); RED CELL DISTRIBUTION WIDTH 13.4 % (9.4-14.8)
[2020-07-07 04:46] LABS: ANION GAP 4 mmol/L (5-15); CALCIUM 8.3 mg/dL (8.5-10.1); CHLORIDE 112 mmol/L (98-107); CREATININE 1.64 mg/dL (0.7-1.3)
[2020-07-07] MEDS: METOPROLOL TARTRATE 25 MG TAB PO SCH ×2 (06:14→17:15)
[2020-07-07] MEDS ORDERED: POTASSIUM CHLORIDE 40 MEQ in SODIUM CHLORIDE 0.9% 500 ML IV ONE (07:00)
[2020-07-07] MEDS ORDERED: VASOPRESSIN 20 UNIT in SODIUM CHLORIDE 0.9% 99 ML IV SCH (07:37)
[2020-07-07] MEDS: LACTULOSE 20 GM/30 ML UDC PO SCH ×2 (09:00→20:29)
[2020-07-07] MEDS: DOCUSATE 50 MG/5 ML, 10ML UDC NG SCH (09:00)
[2020-07-07] MEDS: FUROSEMIDE 40 MG/4 ML IV SCH (09:00)
[2020-07-07] MEDS: ENOXAPARIN 40 MG/0.4 ML SQ SCH (09:13)
[2020-07-07] MEDS: AMLODIPINE 5 MG TABLET PO SCH ×2 (09:13→21:24)
[2020-07-07] MEDS: SODIUM CHLORIDE FLUSH 10ML SYR IVF SCH ×2 (09:13→21:33)
[2020-07-07] MEDS: FAMOTIDINE 20 MG/2 ML IVPush SCH (09:13)
[2020-07-07] MEDS ORDERED: FLUCONAZOLE 10 MG/ML ORAL SUSP PO SCH (09:30)
[2020-07-07] MEDS: FLUCONAZOLE 40 MG/ML ORAL SUSP PO SCH (11:59)
[2020-07-07] MEDS: hydrALAzine 20 MG/ML, 1ML IVPush PRN (15:30)
[2020-07-07] MEDS: LABETALOL 5MG/ML, 20ML IVPush PRN (16:14)
[2020-07-08] MEDS: CEFEPIME 1 GM in DEXTROSE 5% 100 ML IV SCH ×3 (00:16→16:00)
[2020-07-08] MEDS: INSULIN LISPRO 100 UNITS/ML, PEN MEDIUM DOSE SS SQ-INSULIN SCH ×4 (03:00→20:40)
[2020-07-08 04:39] LABS: ANION GAP 7 mmol/L (5-15); CALCIUM 8.2 mg/dL (8.5-10.1); CHLORIDE 116 mmol/L (98-107); CREATININE 1.51 mg/dL (0.7-1.3)
[2020-07-08] MEDS: METOPROLOL TARTRATE 25 MG TAB PO SCH ×2 (05:34→17:14)
[2020-07-08] MEDS: LORazepam 2 MG/ML, 1ML IVPush PRN ×4 (06:20→21:29)
[2020-07-08] MEDS: LACTULOSE 20 GM/30 ML UDC PO SCH ×2 (07:44→19:46)
[2020-07-08] MEDS: FAMOTIDINE 20 MG/2 ML IVPush SCH (07:49)
[2020-07-08] MEDS: ENOXAPARIN 40 MG/0.4 ML SQ SCH (07:49)
[2020-07-08] MEDS: DOCUSATE 50 MG/5 ML, 10ML UDC NG SCH (07:49)
[2020-07-08] MEDS: AMLODIPINE 5 MG TABLET PO SCH ×2 (07:49→19:46)
[2020-07-08] MEDS: SODIUM CHLORIDE FLUSH 10ML SYR IVF SCH ×2 (07:50→19:46)
[2020-07-08] MEDS ORDERED: DIAZEPAM 5 MG TABLET PO PRN (09:30)
[2020-07-08] MEDS: FLUCONAZOLE 40 MG/ML ORAL SUSP PO SCH (11:13)
[2020-07-08] MEDS: ERYTHROMYCIN OPHTH 0.5%, 1GM EACHEYE SCH ×3 (11:13→19:46)
[2020-07-08 11:55] VITALS: BP 133/85
[2020-07-08] MEDS: DIPHENHYDRAMINE 50 MG/ML, 1ML IVPush PRN ×2 (14:37→19:45)
[2020-07-08 15:08] VITALS: BP 148/93
[2020-07-08 19:24] VITALS: BP 155/91
[2020-07-08] MEDS: ACETAMINOPHEN 325 MG TABLET PO PRN (19:46)
[2020-07-09] MEDS: CEFEPIME 1 GM in DEXTROSE 5% 100 ML IV SCH ×3 (00:18→15:40)
[2020-07-09] MEDS ORDERED: HALOPERIDOL 5 MG/ML IM ONE (00:30)
[2020-07-09] MEDS ORDERED: HALOPERIDOL 5 MG/ML ONE ×2 (00:32→12:43)
[2020-07-09] MEDS: INSULIN LISPRO 100 UNITS/ML, PEN MEDIUM DOSE SS SQ-INSULIN SCH ×4 (03:00→21:56)
[2020-07-09 05:34] LABS: ANION GAP 7 mmol/L (5-15); CALCIUM 7.8 mg/dL (8.5-10.1); CHLORIDE 119 mmol/L (98-107)
[2020-07-09 05:35] LABS: CREATININE 1.16 mg/dL (0.7-1.3)
[2020-07-09 05:38] LABS: BASOPHILS % (AUTO) 0 % (0-1); EOSINOPHILS % (AUTO) 2 % (1-7); LYMPHOCYTES % (AUTO) 12 % (22-44); MEAN CORPUSCULAR HGB CONC 32.7 g/dL (33.2-36.2); MEAN PLATELET VOLUME 10.1 fL (7.4-10.4); MONOCYTES % (AUTO) 5 % (2-9); NEUTROPHILS % (AUTO) 80 % (42-75); PLATELET COUNT 134 x10^3/uL (130-400); RED CELL DISTRIBUTION WIDTH 13.6 % (9.4-14.8)
[2020-07-09 05:46] LABS: MD NO
[2020-07-09] MEDS: METOPROLOL TARTRATE 25 MG TAB PO SCH ×2 (06:08→17:20)
[2020-07-09] MEDS: ERYTHROMYCIN OPHTH 0.5%, 1GM EACHEYE SCH ×4 (06:09→21:56)
[2020-07-09 07:08] VITALS: BP 141/88
[2020-07-09] MEDS: FAMOTIDINE 20 MG/2 ML IVPush SCH (08:56)
[2020-07-09] MEDS: AMLODIPINE 5 MG TABLET PO SCH ×2 (08:56→21:55)
[2020-07-09] MEDS: ENOXAPARIN 40 MG/0.4 ML SQ SCH (08:56)
[2020-07-09] MEDS: LACTULOSE 20 GM/30 ML UDC PO SCH ×2 (09:00→21:02)
[2020-07-09] MEDS: SODIUM CHLORIDE FLUSH 10ML SYR IVF SCH ×2 (09:00→21:55)
[2020-07-09] MEDS: DOCUSATE 50 MG/5 ML, 10ML UDC NG SCH (09:00)
[2020-07-09] MEDS: LORazepam 2 MG/ML, 1ML IVPush PRN (10:12)
[2020-07-09] MEDS ORDERED: FLUCONAZOLE 200 MG TABLET ONE (11:12)
[2020-07-09] MEDS: FLUCONAZOLE 40 MG/ML ORAL SUSP PO SCH (11:14)
[2020-07-09] MEDS: DIPHENHYDRAMINE 50 MG/ML, 1ML IVPush PRN (11:59)
[2020-07-09] MEDS ORDERED: HALOPERIDOL 5 MG/ML IM PRN (13:00)
[2020-07-09 13:20] VITALS: BP 138/83
[2020-07-09 14:33] LABS: MICROSCOPIC INDICATED
[2020-07-09 19:23] VITALS: BP 132/79
[2020-07-09 21:50] VITALS: BP 144/87
[2020-07-10] MEDS: CEFEPIME 1 GM in DEXTROSE 5% 100 ML IV SCH ×4 (00:26→23:28)
[2020-07-10] MEDS: INSULIN LISPRO 100 UNITS/ML, PEN MEDIUM DOSE SS SQ-INSULIN SCH ×4 (02:56→20:15)
[2020-07-10 05:12] VITALS: BP 145/92
[2020-07-10] MEDS: METOPROLOL TARTRATE 25 MG TAB PO SCH ×2 (05:38→18:02)
[2020-07-10] MEDS: ERYTHROMYCIN OPHTH 0.5%, 1GM EACHEYE SCH ×4 (05:38→20:14)
[2020-07-10 06:11] LABS: CHLORIDE 113 mmol/L (98-107)
[2020-07-10 06:15] LABS: ANION GAP 7 mmol/L (5-15); CALCIUM 7.8 mg/dL (8.5-10.1); CREATININE 1.04 mg/dL (0.7-1.3)
[2020-07-10 07:11] VITALS: BP 149/84
[2020-07-10 07:53] LABS: BASOPHILS % (AUTO) 0 % (0-1); EOSINOPHILS % (AUTO) 2 % (1-7); LYMPHOCYTES % (AUTO) 14 % (22-44); MD NO; MEAN CORPUSCULAR HGB CONC 32.8 g/dL (33.2-36.2); MEAN PLATELET VOLUME 9.4 fL (7.4-10.4); MONOCYTES % (AUTO) 7 % (2-9); NEUTROPHILS % (AUTO) 76 % (42-75); PLATELET COUNT 149 x10^3/uL (130-400); RED BLOOD COUNT 4.09 x10^6/uL (4.38-5.82); RED CELL DISTRIBUTION WIDTH 13.5 % (9.4-14.8)
[2020-07-10] MEDS: ENOXAPARIN 40 MG/0.4 ML SQ SCH (08:14)
[2020-07-10] MEDS: DOCUSATE 50 MG/5 ML, 10ML UDC NG SCH (08:14)
[2020-07-10] MEDS: AMLODIPINE 5 MG TABLET PO SCH ×2 (08:14→20:14)
[2020-07-10] MEDS: LACTULOSE 20 GM/30 ML UDC PO SCH (08:14)
[2020-07-10] MEDS: FAMOTIDINE 20 MG/2 ML IVPush SCH (08:14)
[2020-07-10] MEDS: SODIUM CHLORIDE FLUSH 10ML SYR IVF SCH ×2 (09:41→20:15)
[2020-07-10] MEDS: FLUCONAZOLE 40 MG/ML ORAL SUSP PO SCH (11:55)
[2020-07-10 12:31] VITALS: BP 124/82
[2020-07-10] MEDS ORDERED: LABETALOL 5MG/ML, 20ML IVPush PRN (17:00)
[2020-07-10 18:43] VITALS: BP 137/90
[2020-07-10] MEDS: THIAMINE 100MG TABLET PO SCH (20:14)
[2020-07-10] MEDS ORDERED: FAMOTIDINE 20 MG TABLET PO SCH (21:00)
[2020-07-10] MEDS ORDERED: NICOTINE 14MG/24 HR PATCH.TD24 TD SCH (21:00)
[2020-07-10] MEDS: DIPHENHYDRAMINE 50 MG/ML, 1ML IVPush PRN (21:51)
[2020-07-11 01:12] VITALS: BP 149/81
[2020-07-11] MEDS: INSULIN LISPRO 100 UNITS/ML, PEN MEDIUM DOSE SS SQ-INSULIN SCH ×2 (02:52→08:18)
[2020-07-11] MEDS: ACETAMINOPHEN 325 MG TABLET PO PRN (03:17)
[2020-07-11] MEDS: ERYTHROMYCIN OPHTH 0.5%, 1GM EACHEYE SCH ×3 (04:43→11:00)
[2020-07-11] MEDS: METOPROLOL TARTRATE 25 MG TAB PO SCH (04:43)
[2020-07-11 05:13] LABS: BASOPHILS % (AUTO) 1 % (0-1); EOSINOPHILS % (AUTO) 2 % (1-7); LYMPHOCYTES % (AUTO) 20 % (22-44); MEAN CORPUSCULAR HEMOGLOBIN 31.1 pg (27.5-34.5); MEAN CORPUSCULAR HGB CONC 33.3 g/dL (33.2-36.2); MEAN PLATELET VOLUME 9.7 fL (7.4-10.4); MONOCYTES % (AUTO) 8 % (2-9); NEUTROPHILS % (AUTO) 68 % (42-75); PLATELET COUNT 175 x10^3/uL (130-400); RED BLOOD COUNT 4.01 x10^6/uL (4.38-5.82); RED CELL DISTRIBUTION WIDTH 13.3 % (9.4-14.8)
[2020-07-11 05:18] LABS: MD NO
[2020-07-11 05:20] LABS: ANION GAP 6 mmol/L (5-15); CALCIUM 7.6 mg/dL (8.5-10.1); CHLORIDE 107 mmol/L (98-107); CREATININE 1.09 mg/dL (0.7-1.3)
--- NOTE | 2020-07-11 06:09 | NUR ---
RASHEL JOE E - Fall Risk Medication(s) present and receiving anticoagulants.
[2020-07-11 07:33] VITALS: BP 139/85
[2020-07-11] MEDS: AMLODIPINE 5 MG TABLET PO SCH (08:08)
[2020-07-11] MEDS: THIAMINE 100MG TABLET PO SCH (08:08)
[2020-07-11] MEDS: CEFEPIME 1 GM in DEXTROSE 5% 100 ML IV SCH (08:09)
[2020-07-11] MEDS: ENOXAPARIN 40 MG/0.4 ML SQ SCH (08:09)
[2020-07-11] MEDS: SODIUM CHLORIDE FLUSH 10ML SYR IVF SCH (08:09)
[2020-07-11] MEDS: DOCUSATE 50 MG/5 ML, 10ML UDC NG SCH (08:12)
[2020-07-11] MEDS ORDERED: FOLIC ACID 1 MG TABLET PO SCH (09:00)
[2020-07-11] MEDS ORDERED: MULTIVITAMINS/MINERALS TABLET PO SCH (09:00)
[2020-07-11] MEDS: FLUCONAZOLE 40 MG/ML ORAL SUSP PO SCH (10:59)
[2020-07-11 13:12] VITALS: BP 128/77
== END 2020-07-11 13:57 | disposition left against medical advice (07) | DRG 207 ==
LOC: ED 13:00 → SUATTDRO 14:19 → EDIP 14:27 → CCU 14:50 → CSU 06-29 15:55 → 4NE 07-08 11:39 → 3N 07-09 20:21
PROVIDERS: ADMIT Internal Medicine; ATTEND Internal Medicine
PROC: 30233K1 Transfusion of Nonautologous Frozen Plasma into Peripheral Vein, Percutaneous Approach (ICD-10-PCS; principal; 2020-06-26)
PROC: 5A1945Z Respiratory Ventilation, 24-96 Consecutive Hours (ICD-10-PCS; 2020-06-26)
PROC: 0BH17EZ Insertion of Endotracheal Airway into Trachea, Via Natural or Artificial Opening (ICD-10-PCS; 2020-06-26)
PROC: 5A1955Z Respiratory Ventilation, Greater than 96 Consecutive Hours (ICD-10-PCS; 2020-07-01)
PROC: 0BH17EZ Insertion of Endotracheal Airway into Trachea, Via Natural or Artificial Opening (ICD-10-PCS; 2020-07-01)
PROC: 0T9B70Z Drainage of Bladder with Drainage Device, Via Natural or Artificial Opening (ICD-10-PCS; 2020-07-01)
DX: J96.01 Acute respiratory failure with hypoxia (principal); G93.41 Metabolic encephalopathy; I50.43 Acute on chronic combined systolic (congestive) and diastolic (congestive) heart failure; J15.211 Pneumonia due to Methicillin susceptible Staphylococcus aureus; N17.0 Acute kidney failure with tubular necrosis; B37.0 Candidal stomatitis; T83.518A Infection and inflammatory reaction due to other urinary catheter, initial encounter; E87.0 Hyperosmolality and hypernatremia; E87.1 Hypo-osmolality and hyponatremia; F10.239 Alcohol dependence with withdrawal, unspecified; I13.0 Hypertensive heart and chronic kidney disease with heart failure and stage 1 through stage 4 chronic kidney disease, or unspecified chronic kidney disease; I16.9 Hypertensive crisis, unspecified; I47.1 Supraventricular tachycardia; J44.1 Chronic obstructive pulmonary disease with (acute) exacerbation; J44.0 Chronic obstructive pulmonary disease with (acute) lower respiratory infection; R78.81 Bacteremia; Z99.11 Dependence on respirator [ventilator] status; Z20.822 Contact with and (suspected) exposure to COVID-19; B95.0 Streptococcus, group A, as the cause of diseases classified elsewhere; D63.8 Anemia in other chronic diseases classified elsewhere; D69.6 Thrombocytopenia, unspecified; E16.2 Hypoglycemia, unspecified; E87.6 Hypokalemia; F15.10 Other stimulant abuse, uncomplicated; F17.200 Nicotine dependence, unspecified, uncomplicated; H10.9 Unspecified conjunctivitis; I80.8 Phlebitis and thrombophlebitis of other sites; J38.4 Edema of larynx; N18.30 Chronic kidney disease, stage 3 unspecified; R50.2 Drug induced fever; T38.0X5A Adverse effect of glucocorticoids and synthetic analogues, initial encounter; T78.3XXA Angioneurotic edema, initial encounter; Y84.6 Urinary catheterization as the cause of abnormal reaction of the patient, or of later complication, without mention of misadventure at the time of the procedure; M79.89 Other specified soft tissue disorders; R00.1 Bradycardia, unspecified; R53.81 Other malaise; R73.9 Hyperglycemia, unspecified; Z78.1 Physical restraint status; Z79.899 Other long term (current) drug therapy; Z91.19 Patient's noncompliance with other medical treatment and regimen
CPT/HCPCS: 31500; 36415; 36600; 74018; 96374; 96375; 99291; 99292; J7613; J7626; 70491; 71045; 71250; 74176; 76700; 80048; 80076; 80307; 80320; 81001; 82040; 82436; 82542; 82570; 82803; 82962; 83036; 83605; 83690; 83735; 84133; 84300; 84478; 85025; 86022; 86850; 86900; 87040; 87070; 87077; 87081; 87086; 87147; 87181; 87186; 87205; 87635; 93005; 93306; 93970; 94002; 94003; 94640; G0378; J0171; J0461; J0692; J0696; J1100; J1644; J1650; J1940; J2250; J2405; J2543; J2704; J3010; J3360; J3370; J3480; J3486; Q9967; G0480; J0330; J0360; J1200; J1630; J1652; J1815; J2060; J2270; J2930; J7030; J7040; J7050; J7120; P9017; U0003

== ENCOUNTER 2020-07-12 04:41 | Inpatient (IN) | payer MEDICAID ==
[~2020-07-12] VITALS: Ht 180.3 cm; Wt 67.2 kg
[~2020-07-12 04:41] MED LIST changes: +ALBU90AE2 INH; +CARV3.122 PO; +FLUT1BLS9 INH; +LISI20TA21 PO; +OMEP20TA9 PO
[2020-07-12] MEDS ORDERED: SODIUM CHLORIDE 0.9% 1,000ML IVBOLUS ONE (05:00)
--- NOTE | 2020-07-12 05:11 | NUR ---
BIB [facility] STATES HE HAD DIZZINESS SINCE 89 AT HOME WITH A GENERATLIZED MATOS. PT STATES HAS PAIN 10/10 PT STATES CAN'T WALK OR SIT DOWN, EQUILIBRIUM IS OFF. THIS HAS BEEN GOING ON FOR A WEEK.
--- NOTE | 2020-07-12 05:13 | NUR ---
PT IN CT.
--- NOTE | 2020-07-12 05:14 | NUR ---
PT BACK FROM CT
[2020-07-12] MEDS ORDERED: CEFEPIME 1 GM in DEXTROSE 5% 50 ML IV ONE (05:30)
--- NOTE | 2020-07-12 05:38 | NUR ---
PT WAS ADMITTED ON 06/26/2020 AND WAS INTUBATED.
--- NOTE | 2020-07-12 05:41 | NUR ---
PT STATES HAS A BROKEN LEFT THUMB FROM WHEN HE FELL THIS AM.
[2020-07-12 06:21] LABS: BASOPHILS % (AUTO) 1 % (0-1); EOSINOPHILS % (AUTO) 1 % (1-7); LYMPHOCYTES % (AUTO) 15 % (22-44); MEAN CORPUSCULAR HEMOGLOBIN 31.1 pg (27.5-34.5); MEAN CORPUSCULAR HGB CONC 33.5 g/dL (33.2-36.2); MEAN PLATELET VOLUME 9.4 fL (7.4-10.4); MONOCYTES % (AUTO) 6 % (2-9); NEUTROPHILS % (AUTO) 78 % (42-75); PLATELET COUNT 189 x10^3/uL (130-400); RED BLOOD COUNT 3.79 x10^6/uL (4.38-5.82); RED CELL DISTRIBUTION WIDTH 13.2 % (9.4-14.8)
[2020-07-12 06:26] LABS: MD NO
[2020-07-12 06:30] LABS: ALANINE AMINOTRANSFERASE 55 U/L (12-78); ALBUMIN 2.6 g/dL (3.4-5.0); ANION GAP 8 mmol/L (5-15); CALCIUM 7.8 mg/dL (8.5-10.1); CHLORIDE 109 mmol/L (98-107); CREATININE 0.95 mg/dL (0.7-1.3)
[2020-07-12 06:35] LABS: ALKALINE PHOSPHATASE 71 U/L (45-117); BILIRUBIN,TOTAL 0.8 mg/dL (0.2-1.0); TOTAL PROTEIN 6.8 g/dL (6.4-8.2)
--- NOTE | 2020-07-12 06:44 | NUR ---
PT REQUESTED FOOD. ORDERED TRAY.
--- NOTE | 2020-07-12 06:51 | NUR ---
Bedside report from ELANA Alanis and ELANA SCHMITZ.
--- NOTE | 2020-07-12 06:52 | NUR ---
REPORT GIVEN TO MARIA HUITRON.
--- NOTE | 2020-07-12 06:55 | NUR ---
ANTIBIOTIC COMPLETED. SALINE STILL INFUSING UPON REPORT TO DAYSHIFT RN.
[2020-07-12 07:06] LABS: MICROSCOPIC NOT IND
--- NOTE | 2020-07-12 07:41 | NUR ---
EMT at bedside for splint.
[2020-07-12] MEDS ORDERED: SODIUM CHLORIDE FLUSH 10ML SYR IVF PRN (08:00)
[2020-07-12 08:35] VITALS: BP_SYST 129; BP_DIAS 78; BP_DIAS 79
[2020-07-12] MEDS ORDERED: ONDANSETRON ODT 4 MG PO PRN (11:30)
[2020-07-12] MEDS ORDERED: LABETALOL 5MG/ML, 20ML IVPush PRN (11:30)
[2020-07-12] MEDS ORDERED: MELATONIN 5 MG TABLET PO PRN (11:30)
[2020-07-12] MEDS ORDERED: ACETAMINOPHEN 325 MG TABLET PO PRN (11:30)
[2020-07-12] MEDS ORDERED: CEFEPIME 1 GM in DEXTROSE 5% 50 ML IV SCH (12:00)
[2020-07-12] MEDS: FLUCONAZOLE 200 MG TABLET PO SCH (12:45)
[2020-07-12] MEDS: CEFEPIME 1 GM in DEXTROSE 5% 100 ML IV SCH ×2 (12:45→20:30)
[2020-07-12 12:48] LABS: BASOPHILS % (AUTO) 1 % (0-1); EOSINOPHILS % (AUTO) 1 % (1-7); LYMPHOCYTES % (AUTO) 16 % (22-44); MEAN CORPUSCULAR HEMOGLOBIN 31.6 pg (27.5-34.5); MEAN CORPUSCULAR HGB CONC 34.3 g/dL (33.2-36.2); MEAN PLATELET VOLUME 9.2 fL (7.4-10.4); MONOCYTES % (AUTO) 8 % (2-9); NEUTROPHILS % (AUTO) 73 % (42-75); PLATELET COUNT 192 x10^3/uL (130-400); RED BLOOD COUNT 3.46 x10^6/uL (4.38-5.82); RED CELL DISTRIBUTION WIDTH 13.2 % (9.4-14.8)
[2020-07-12 12:50] LABS: MD NO
[2020-07-12 12:51] LABS: HCT (SEDRATE) 31.9 % (39.2-51.8)
[2020-07-12] MEDS: ENOXAPARIN 40 MG/0.4 ML SQ SCH (13:00)
[2020-07-12 14:53] VITALS: BP 134/80
[2020-07-12] MEDS: METOPROLOL TARTRATE 25 MG TAB PO SCH (18:08)
[2020-07-12 18:50] VITALS: BP 123/70
[2020-07-12] MEDS: ERYTHROMYCIN OPHTH 0.5%, 1GM EACHEYE SCH (21:00)
[2020-07-12] MEDS: FAMOTIDINE 20 MG TABLET PO SCH (22:27)
[2020-07-13 00:41] VITALS: BP 112/55
[2020-07-13] MEDS: CEFEPIME 1 GM in DEXTROSE 5% 100 ML IV SCH ×3 (03:56→19:58)
[2020-07-13 05:20] LABS: ALBUMIN 2.1 g/dL (3.4-5.0); ANION GAP 6 mmol/L (5-15); CALCIUM 7.4 mg/dL (8.5-10.1); CHLORIDE 108 mmol/L (98-107)
[2020-07-13 05:24] LABS: ALANINE AMINOTRANSFERASE 41 U/L (12-78); ALKALINE PHOSPHATASE 65 U/L (45-117); BILIRUBIN,TOTAL 0.5 mg/dL (0.2-1.0)
[2020-07-13 05:30] VITALS: BP 134/81
[2020-07-13] MEDS: METOPROLOL TARTRATE 25 MG TAB PO SCH ×2 (05:35→17:10)
[2020-07-13] MEDS: ERYTHROMYCIN OPHTH 0.5%, 1GM EACHEYE SCH ×4 (05:36→19:58)
[2020-07-13 06:42] VITALS: BP 105/71
[2020-07-13] MEDS: FAMOTIDINE 20 MG TABLET PO SCH ×2 (07:56→19:58)
[2020-07-13] MEDS: AMLODIPINE 5 MG TABLET PO SCH (07:56)
[2020-07-13] MEDS: ENOXAPARIN 40 MG/0.4 ML SQ SCH (11:08)
[2020-07-13] MEDS: FLUCONAZOLE 200 MG TABLET PO SCH (11:38)
[2020-07-13 12:56] VITALS: BP 132/82
[2020-07-13 17:00] VITALS: BP 125/80
[2020-07-13 18:35] VITALS: BP 122/74
[2020-07-14 01:02] VITALS: BP 129/77
[2020-07-14] MEDS: CEFEPIME 1 GM in DEXTROSE 5% 100 ML IV SCH ×3 (04:02→11:55)
[2020-07-14 04:54] VITALS: BP 131/75
[2020-07-14] MEDS: ERYTHROMYCIN OPHTH 0.5%, 1GM EACHEYE SCH ×2 (04:56→11:55)
[2020-07-14] MEDS: METOPROLOL TARTRATE 25 MG TAB PO SCH (04:56)
[2020-07-14 07:05] VITALS: BP 138/79
[2020-07-14 07:33] LABS: ALANINE AMINOTRANSFERASE 38 U/L (12-78); ALBUMIN 2.5 g/dL (3.4-5.0); ANION GAP 5 mmol/L (5-15); BASOPHILS % (AUTO) 1 % (0-1); CALCIUM 7.9 mg/dL (8.5-10.1); CHLORIDE 105 mmol/L (98-107); CREATININE 0.99 mg/dL (0.7-1.3); EOSINOPHILS % (AUTO) 2 % (1-7); LYMPHOCYTES % (AUTO) 20 % (22-44); MEAN CORPUSCULAR HGB CONC 33.3 g/dL (33.2-36.2); MEAN PLATELET VOLUME 8.9 fL (7.4-10.4); MONOCYTES % (AUTO) 11 % (2-9); NEUTROPHILS % (AUTO) 66 % (42-75); PLATELET COUNT 235 x10^3/uL (130-400); RED BLOOD COUNT 3.48 x10^6/uL (4.38-5.82); RED CELL DISTRIBUTION WIDTH 13.4 % (9.4-14.8)
[2020-07-14 07:34] LABS: MD NO
[2020-07-14 07:35] LABS: ALKALINE PHOSPHATASE 70 U/L (45-117); BILIRUBIN,TOTAL 0.5 mg/dL (0.2-1.0); TOTAL PROTEIN 6.8 g/dL (6.4-8.2)
[2020-07-14 08:41] VITALS: BP 141/81
[2020-07-14] MEDS: AMLODIPINE 5 MG TABLET PO SCH (08:42)
[2020-07-14] MEDS: FAMOTIDINE 20 MG TABLET PO SCH (08:42)
[2020-07-14] MEDS ORDERED: CEFE1FRO IV (11:33)
[2020-07-14] MEDS ORDERED: METO25TA35 PO (11:33)
[2020-07-14] MEDS ORDERED: AMLO-150 PO (11:33)
[2020-07-14] MEDS ORDERED: ERYT1OIN5 EACHEYE (11:34)
[2020-07-14] MEDS: ENOXAPARIN 40 MG/0.4 ML SQ SCH (11:53)
[2020-07-14] MEDS: FLUCONAZOLE 200 MG TABLET PO SCH (11:55)
== END 2020-07-14 14:02 | DRG 177 ==
LOC: ED 05:37 → SUATTDRO 07:38 → ORIP 07:41 → 3N 08:13
PROVIDERS: ADMIT Internal Medicine; ATTEND Hospitalist
DX: J15.211 Pneumonia due to Methicillin susceptible Staphylococcus aureus (principal); G93.41 Metabolic encephalopathy; I50.23 Acute on chronic systolic (congestive) heart failure; J96.01 Acute respiratory failure with hypoxia; N17.0 Acute kidney failure with tubular necrosis; N12 Tubulo-interstitial nephritis, not specified as acute or chronic; T83.518A Infection and inflammatory reaction due to other urinary catheter, initial encounter; B37.0 Candidal stomatitis; E87.0 Hyperosmolality and hypernatremia; F10.239 Alcohol dependence with withdrawal, unspecified; I13.0 Hypertensive heart and chronic kidney disease with heart failure and stage 1 through stage 4 chronic kidney disease, or unspecified chronic kidney disease; I47.1 Supraventricular tachycardia; J44.0 Chronic obstructive pulmonary disease with (acute) lower respiratory infection; Z99.11 Dependence on respirator [ventilator] status; F17.210 Nicotine dependence, cigarettes, uncomplicated; B95.0 Streptococcus, group A, as the cause of diseases classified elsewhere; B95.4 Other streptococcus as the cause of diseases classified elsewhere; B96.89 Other specified bacterial agents as the cause of diseases classified elsewhere; D64.9 Anemia, unspecified; D69.6 Thrombocytopenia, unspecified; F15.10 Other stimulant abuse, uncomplicated; H10.9 Unspecified conjunctivitis; I80.9 Phlebitis and thrombophlebitis of unspecified site; J38.4 Edema of larynx; N18.9 Chronic kidney disease, unspecified; T78.3XXA Angioneurotic edema, initial encounter; Y84.6 Urinary catheterization as the cause of abnormal reaction of the patient, or of later complication, without mention of misadventure at the time of the procedure; Z78.1 Physical restraint status; Z86.73 Personal history of transient ischemic attack (TIA), and cerebral infarction without residual deficits; Z88.8 Allergy status to other drugs, medicaments and biological substances; Z91.19 Patient's noncompliance with other medical treatment and regimen; R23.4 Changes in skin texture; S62.661A Nondisplaced fracture of distal phalanx of left index finger, initial encounter for closed fracture; W18.30XA Fall on same level, unspecified, initial encounter; Y92.009 Unspecified place in unspecified non-institutional (private) residence as the place of occurrence of the external cause; Y93.89 Activity, other specified
CPT/HCPCS: 36415; 70450; 71045; 80053; 81003; 82962; 83605; 83735; 83880; 84100; 84145; 85025; 85651; 87040; 93005; 96365; G0378; J0692; J1650; J7030

== ENCOUNTER 2020-07-19 19:20 | Emergency (ER) | payer MEDICAID ==
[~2020-07-19] VITALS: Ht 180.3 cm; Wt 68.6 kg
[~2020-07-19 19:20] MED LIST changes: +AMLO-150 PO; +CEFE1FRO IV; +ERYT1OIN5 EACHEYE
--- NOTE | 2020-07-19 19:50 | NUR ---
ASSUMED CARE OF PATIENT. PATIENT REPORTS HE IS HERE BECAUSE HE HAS A BLOOD INFECTION. PT ALSO REPORTS HE WAS RECENTLY ADMITTED TO DUE TO ANGIOEDEMA. PT IS MOVING ALL AROUND ROOM ORGANZING BELONINGS AND TALKING RAPID. VS STABLE. NO ACUTE DISTRESS NOTED. WILL CONTINUE TO MONITOR.
[2020-07-19 20:34] LABS: MEAN CORPUSCULAR HEMOGLOBIN 30.8 pg (27.5-34.5); MEAN CORPUSCULAR HGB CONC 33.3 g/dL (33.2-36.2); MEAN PLATELET VOLUME 7.3 fL (7.4-10.4); PLATELET COUNT 367 x10^3/uL (130-400); RED CELL DISTRIBUTION WIDTH 13.4 % (9.4-14.8)
[2020-07-19 20:42] LABS: ANION GAP 4 mmol/L (5-15); CALCIUM 8.3 mg/dL (8.5-10.1); CHLORIDE 110 mmol/L (98-107); CREATININE 1.02 mg/dL (0.7-1.3)
--- NOTE | 2020-07-19 20:44 | NUR ---
PT WATCHING TV IN ROOM. ROLL SLICING MACHINE TENDER ON. SINUS TACH NOTED. PT KEEPS GETTING OUT OF THE BED AND MOVING AROUND ROOM. PT EDUCATION MANAGER UTILITIES LIGHT DONE. VS STABLE. CALL LIGHT IN PLACE. WILL CONTINUE TO MONITOR.
[2020-07-19 21:06] LABS: ANISOCYTOSIS 1+; BASOS#(MANUAL) 0.23 x10^3/uL (0-0.1); BASOS% (MANUAL) 4 % (0-1); EOS#(MANUAL) 0.17 x10^3/uL (0.0-0.4); EOS% (MANUAL) 3 % (1-7); HYPOCHROMIA 2+; LYMPH#(MANUAL) 2.96 x10^3/uL (1-3.4); LYMPHS% (MANUAL) 52 % (22-44); MONOS#(MANUAL) 0.63 x10^3/uL (0.3-2.7); MONOS% (MANUAL) 11 % (2-9); SEG#(MANUAL) 1.71 x10^3/uL (1.8-6.8); SEGS% (MANUAL) 30 % (42-75)
[2020-07-19 21:07] LABS: <PLATELET ESTIMATE> ADEQUATE; POLYCHROMASIA 1+
[2020-07-19 21:08] LABS: SMALL PLATELETS 1+
[2020-07-19 21:22] VITALS: BP 152/96
== END 2020-07-19 21:41 | disposition home or self-care (01) ==
LOC: ED 19:58
DX: S63.641A Sprain of metacarpophalangeal joint of right thumb, initial encounter (principal); M79.645 Pain in left finger(s); R42 Dizziness and giddiness; R00.0 Tachycardia, unspecified; F17.210 Nicotine dependence, cigarettes, uncomplicated; Z88.8 Allergy status to other drugs, medicaments and biological substances; W18.30XA Fall on same level, unspecified, initial encounter; Y93.89 Activity, other specified; Y92.009 Unspecified place in unspecified non-institutional (private) residence as the place of occurrence of the external cause; Y99.8 Other external cause status
CPT/HCPCS: 36415; 71045; 80048; 82040; 85025; 93005; 99285

== ENCOUNTER 2020-09-21 13:45 | Emergency (ER) | payer MEDICAID ==
[~2020-09-21] VITALS: Ht 180.3 cm; Wt 71.7 kg
--- NOTE | 2020-09-21 14:31 | NUR ---
PT AMBULATED BACK TO ROOM WITHOUT DIFFICULTY. REPORTS HE WAS PRESCRIBED HCTZ FROM [facility] AND HAS BEEN TAKING IT FOR ABOUT 3 DAYS. REPORTS SOB, "THROAT FELT LIKE IT WAS CLOSING UP" AT HOME. NO SIGNS OF RESPIRATORY DISTRESS AT THIS TIME. HR 90s-100, SPO2 99% ON RA. ERP AT BS NOW.
[2020-09-21 14:54] LABS: BASOPHILS % (AUTO) 1 % (0-1); EOSINOPHILS % (AUTO) 2 % (1-7); LYMPHOCYTES % (AUTO) 25 % (22-44); MEAN CORPUSCULAR HEMOGLOBIN 32.2 pg (27.5-34.5); MEAN CORPUSCULAR HGB CONC 33.7 g/dL (33.2-36.2); MEAN PLATELET VOLUME 7.9 fL (7.4-10.4); MONOCYTES % (AUTO) 12 % (2-9); NEUTROPHILS % (AUTO) 61 % (42-75); PLATELET COUNT 225 x10^3/uL (130-400); RED BLOOD COUNT 4.78 x10^6/uL (4.38-5.82)
[2020-09-21 15:04] LABS: CHLORIDE 107 mmol/L (98-107)
[2020-09-21 15:10] LABS: ALANINE AMINOTRANSFERASE 42 U/L (12-78); ALBUMIN 3.6 g/dL (3.4-5.0); ALKALINE PHOSPHATASE 99 U/L (45-117); ANION GAP 8 mmol/L (5-15); BILIRUBIN,TOTAL 0.3 mg/dL (0.2-1.0); CALCIUM 9.3 mg/dL (8.5-10.1); CREATININE 1.22 mg/dL (0.7-1.3); TOTAL PROTEIN 8.4 g/dL (6.4-8.2); TROPONIN I < 0.015 ng/mL (0.000-0.045)
[2020-09-21] MEDS ORDERED: DEXAMETHASONE 4 MG TABLET ONE (15:19)
[2020-09-21] MEDS ORDERED: HYDR25TA6 PO (15:27)
--- NOTE | 2020-09-21 15:28 | NUR ---
PT MEDICATED PER ORDERS. UNDERSTANDS POC.
[2020-09-21] MEDS ORDERED: DEXAMETHASONE 4 MG TABLET PO ONE (15:30)
--- NOTE | 2020-09-21 15:48 | NUR ---
ERP AT FOR RECHECK.
[2020-09-21 16:05] VITALS: BP 158/107
--- NOTE | 2020-09-21 16:10 | NUR ---
D/C INSTRUCTIONS & F/U APPT RV'WD WITH PT, HE VERBALIZES UNDERSTANDING. INSTRUCTED TO F/U WITH PCP REGARDING BP. INSTRUCTED TO RETURN TO ED FOR THROAT SWELLING/DIFFICULTY BREATHING OR ANY OTHER CONCERNS. AMBULATED OUT OF ED WITHOUT DIFFICULTY.
== END 2020-09-21 16:16 | disposition home or self-care (01) ==
LOC: ED 15:03
DX: J05.10 Acute epiglottitis without obstruction (principal); I11.9 Hypertensive heart disease without heart failure; R07.89 Other chest pain; R06.02 Shortness of breath; J44.9 Chronic obstructive pulmonary disease, unspecified; F17.200 Nicotine dependence, unspecified, uncomplicated
CPT/HCPCS: 36415; 70360; 71045; 80053; 84484; 85025; 93005; 99285